=== PATIENT | female | born 1975 | race Caucasian/White ===

== ENCOUNTER 2017-04-13 17:39 | Emergency (ER) | payer SELFPAY ==
[~2017-04-13] VITALS: Ht 165.1 cm; Wt 107.5 kg
[~2017-04-13 17:39] MED LIST: ASPI-664 PO; ATOR20TA38 PO; HYDR-906 PO; IBUP-1542 PO; METO-448 PO; NAPR500T8 PO; PANT40TA4 PO; SITA25TA3 PO
[2017-04-13 17:42] VITALS: Ht 165.1 cm; Wt 107.5 kg
[2017-04-13] MEDS ORDERED: KETOROLAC 30 MG INJ IM STA (19:20)
--- NOTE | 2017-04-13 20:13 | RADRPT ---
PROCEDURE: XR Right Wrist with Navicular View CLINICAL INDICATION: Pain, status post trauma with history of surgery TECHNIQUE: AP, lateral, and oblique views as well as a carpal navicular view were submitted. COMPARISON: Comparison to previous 06/27/2013 FINDINGS: Osseous structures: Since the previous study, ventral compression plate has been placed to internall y fixed the no healed comminuted intra-articular fracture involving the distal right radius with mil d persistent dorsal angulation of the distal articular surface. The ulnar styloid is again seen to be avulsed and displaced laterally. The remaining osseous elements appear intact. Joint spaces: There is narrowing of the radiocarpal joint space Soft tissues: appear unremarkable. IMPRESSION: 1. Healed internally fixed fracture involving the distal right radius with dorsal angulation of the distal articular surface. 2. The ulnar styloid tip is again seen to be avulsed and displaced medially. 3. No acute fracture is identified. Physician Alyx Date Time Electronically viewed and signed by Physician Alyx on 04/13/2017 20:13 /
--- NOTE | 2017-04-13 20:15 | ERD ---
ER Documentation Chief Complaint Date/Time DATE: 04/13/17 TIME: 20:12 Chief Complaint RT WRIST PAIN AND SWELLING S/P FILE CABINET FALLING ON IT, HX OF WRIST SURG HPI Patient is a 42-year-old female who presents to the ED with right wrist and right hand pain after sustaining trauma today. Patient states that she was reaching in the filing cabinet and her hand got caught. She states that she has had previous surgery on her wrist in 2011. Denies radiation of pain. Denies passing out or blacking out or hitting her head. Denies fever or chills. Denies abdominal pain, nausea, vomiting or diarrhea. Has not taken any medication for her symptoms. No other complaints. ROS All systems reviewed and are negative except as per history of present illness. Medications Home Meds Active Scripts Hydrocodone/Acetaminophen (Normal 5-325 Tablet) 1 Each Tablet, 1 TAB PO Q6H Y for PAIN, #7 TAB Prov:DEMETRI ALVAREZ PA-C 04/13/17 Hydrocodone Bit-Acetaminophen (Normal) 5-325 Mg Tablet, 1 TAB PO DAILY Y for PAIN for 7 Days, #7 TAB 0 Refills Prov:MESFIN BRAND PA-C 05/12/16 Ibuprofen* (Motrin*) 600 Mg Tab, 600 MG PO Q8 for 10 Days, #30 TAB 0 Refills Prov:MESFIN BRAND PA-C 05/12/16 Sitagliptin* (Januvia*) 25 Mg Tablet, 25 MG PO DAILY for 30 Days, TAB Prov:FAUSTINO LEAL 06/28/15 Naproxen* (Naproxen EC*) 500 Mg Tablet.dr, 500 MG PO BID Y for PAIN for 10 Days , TAB Prov:FAUSTINO LEAL 06/28/15 Atorvastatin Calcium* (Atorvastatin Calcium*) 20 Mg Tab, 20 MG PO HS for 14 Days Prov:FAUSTINO LEAL 06/28/15 Pantoprazole* (Pantoprazole*) 40 Mg Tabec, 40 MG PO DAILY@06 for 30 Days Prov:AFUSTINO LEAL 06/28/15 Metoprolol Tartrate* (Lopressor*) 25 Mg Tab, 12.5 MG PO BID for 30 Days, TAB Prov:FAUSTINO LEAL 06/28/15 Aspirin* (Aspirin* EC) 81 Mg Tabec, 81 MG PO DAILY for 30 Days Prov:FAUSTINO LEAL 06/28/15 Allergies Allergies: Coded Allergies: erythromycin base (Verified Allergy, Mild, 04/13/17) Uncoded Allergies: FLU SHOT (Allergy, Unknown, 06/26/15) PMhx/Soc History of Surgery: Yes (ENDOMETRIAL ABLATION, WRIST SURGERY X3) Anesthesia Reaction: No Hx Neurological Disorder: No Hx Respiratory Disorders: No Hx Cardiac Disorders: No Hx Psychiatric Problems: No Hx Miscellaneous Medical Probl: Yes (DM) Hx Alcohol Use: Yes (OCCASSIONAL) Hx Substance Use: No Hx Tobacco Use: No Smoking Status: Never smoker FmHx Family History: No coronary disease, No diabetes, No other Physical Exam Vitals Vital Signs Date Time Temp Pulse Resp B/P Pulse Ox O2 Delivery O2 Flow Rate FiO2 04/13/17 17:42 99.5 99 18 186/94 100 Physical Exam GENERAL: Well-developed, well-nourished female. Appears in no acute distress. HEAD: Normocephalic, atraumatic. EYES: Pupils are equally reactive bilaterally. EOMs grossly intact. No conjunctival erythema. ENT: Moist mucous membranes. No uvula deviation. No kissing tonsils. No exudates. NECK: Supple. No lymphadenopathy or thyromegaly. No meningismus. negative kernig. negative brudinski. LUNG: Clear to auscultation bilaterally. No rhonchi, wheezing, rales or coarse breath sounds. HEART: Regular rate and rhythm. No murmurs, rubs or gallops. Extremities: Equal pulses bilaterally. No peripheral clubbing, cyanosis or edema. No unilateral leg swelling. Tenderness to the right wrist with no step- offs or deformities. No open wounds or lacerations. Sensation intact in radius , ulnar and median nerve. No snuffbox tenderness. Patient is unable to pronate and supinate due to the pain. NEUROLOGIC: Alert and oriented. . Normal speech. Steady gait. SKIN: Normal color. Warm and dry. No rashes or lesions. Capillary refill < 2 seconds Results 24 hrs Current Medications Medications (Trade) Dose Ordered Sig/Hanh Route PRN Reason Start Time Stop Time Status Last Admin Dose Admin Ketorolac Tromethamine (Toradol) 30 mg ONCE STAT IM 04/13/17 19:20 04/13/17 19:22 DC 04/13/17 19:36 Procedures/MDM ER COURSE: I kept the patient and/or family informed of laboratory and diagnostic imaging results throughout the emergency room course. IMAGING STUDIES [place] [address] Radiology Main Line: [phone] DIAGNOSTIC IMAGING REPORT Patient: NICOLAS SALAMANCA : 1975 Age: 42 Sex: F MR #: [id number] DOS: 04/13/17 1920 Ordering MD: DEMETRI ALVAREZ PA-C Location: [facility] Room/Bed: PROCEDURE: XR Right Hand CLINICAL INDICATION: Pain, status post trauma with surgery TECHNIQUE: AP, oblique, and lateral radiographs were submitted. COMPARISON: 07/31/2012 FINDINGS: Osseous structures: Since the previous study, with a ventral compression plate has been placed to internally fixed a now healed fracture involving the distal radius which was not present previously. There is no moderate dorsal angulation of the distal radial articular surface. The ulnar styloid tip is again seen to be avulsed and displaced laterally. The remaining osseous elements appear intact. Joint spaces: The remaining joint spaces are well maintained. Soft tissues: appear unremarkable. IMPRESSION: 1. Interval internal fixation of a fracture involving the distal radius which was not present on the previous study. There is no moderate dorsal angulation of the distal radial articular surface. 2. Avulsion of the ulnar styloid displaced medially. 3. The remaining osseous elements and joint spaces remain unremarkable. Physician Alyx Date Time Electronically viewed and signed by Physician Alyx on 04/13/2017 20:15 RH/ CC: DEMETRI ALVAREZ PA-C MEDICATIONS Negative test. Toradol 30 mg IM. Tolerated well with no adverse reaction. MEDICAL DECISION MAKING: This is a 42-year-old female who presents with wrist pain after sustaining an injury today. Vital signs were reviewed. Patient is afebrile. Patient is not hypoxic. Patient is not toxic or ill-appearing. X-rays of by radiologist showed Interval internal fixation of a fracture involving the distal radius which was not present on the previous study. There is no moderate dorsal angulation of the distal radial articular surface. Avulsion of the ulnar styloid displaced medially. The remaining osseous elements and joint spaces remain unremarkable. Patient was given a splint here in the ED. Neurovascularly intact post placement. Low suspicion for dislocation, septic joint, compartment syndrome, osteomyelitis, cellulitis, avascular necrosis, neurological injury, vascular injury, tendon laceration. DISCHARGE: At this time, patient is stable for discharge and outpatient management with no new complaints during the ER course. Patient was sent home with Normal, copy of imaging study and to follow-up with orthopedics in 1-2 days. Patient will be discharged home with instructions to recheck for new or worsening symptoms such as fever, nausea, weakness, LOC and to follow up with primary care in the next 1 -2 days. Patient was advised to return to the ER for any new or worsening symptoms. Plan was discussed and patient and/or family understands and agrees. Home instructions were given. Departure Diagnosis: Primary Impression: Fracture of ulnar styloid Encounter type: initial encounter Fracture type: closed Fracture alignment : displaced Laterality: right Qualified Code: S52.611A - Closed displaced fracture of styloid process of right ulna, initial encounter Condition: Stable DEMETRI ALVAREZ PA-C Apr 13, 2017 20:15
--- NOTE | 2017-04-13 20:15 | RADRPT ---
PROCEDURE: XR Right Hand CLINICAL INDICATION: Pain, status post trauma with surgery TECHNIQUE: AP, oblique, and lateral radiographs were submitted. COMPARISON: 07/31/2012 FINDINGS: Osseous structures: Since the previous study, with a ventral compression plate has been placed to in ternally fixed a now healed fracture involving the distal radius which was not present previously. There is no moderate dorsal angulation of the distal radial articular surface. The ulnar styloid ti p is again seen to be avulsed and displaced laterally. The remaining osseous elements appear intact . Joint spaces: The remaining joint spaces are well maintained. Soft tissues: appear unremarkable. IMPRESSION: 1. Interval internal fixation of a fracture involving the distal radius which was not present on th e previous study. There is no moderate dorsal angulation of the distal radial articular surface. 2. Avulsion of the ulnar styloid displaced medially. 3. The remaining osseous elements and joint spaces remain unremarkable. Physician Alyx Date Time Electronically viewed and signed by Physician Alyx on 04/13/2017 20:15 /
[2017-04-13] MEDS ORDERED: HYDR-906 PO (20:26)
[2017-04-13 21:21] VITALS: BP 147/89; PULSE 73; RESP 20
== END 2017-04-13 21:23 | disposition home or self-care (01) ==
LOC: FTE 17:39
DX: S52.611A Displaced fracture of right ulna styloid process, initial encounter for closed fracture (principal); E11.9 Type 2 diabetes mellitus without complications; W20.8XXA Other cause of strike by thrown, projected or falling object, initial encounter; Y92.9 Unspecified place or not applicable; Z79.84 Long term (current) use of oral hypoglycemic drugs; Z79.82 Long term (current) use of aspirin
CPT/HCPCS: 29125; 73110; 73130; 96372; 99284; J1885

== ENCOUNTER 2017-11-05 19:15 | Emergency (ER) | END 2017-11-06 01:02 | disposition left against medical advice (07) ==